=== PATIENT | female | born 1990 | race Two or more races ===

== ENCOUNTER 2019-06-13 09:18 | Outpatient (CLI) | payer OTHER | END 2019-06-13 09:20 | disposition home or self-care (01) | LOC: RX STUDY 09:18 | DX: R10.2 Pelvic and perineal pain (principal) ==

== ENCOUNTER 2019-11-22 09:29 | Day surgery (SDC) | payer OTHER ==
[~2019-11-22] VITALS: Ht 157.5 cm; Wt 55.8 kg
== END 2019-11-22 17:15 | disposition home or self-care (01) ==
LOC: ER 09:29 → CIR.AMB 10:27
DX: O02.1 Missed abortion (principal)

== ENCOUNTER 2020-07-25 07:08 | Day surgery (SDC) | payer OTHER ==
[~2020-07-25] VITALS: Ht 152.4 cm; Wt 54.4 kg
== END 2020-07-25 17:45 | disposition home or self-care (01) ==
LOC: ER 07:08 → O/R 07:50 → CIR.AMB 10:10 → O/R 11:45 → CIR.AMB 17:45
PROVIDERS: ATTEND Specialist
DX: O02.1 Missed abortion (principal); Z20.828 Contact with and (suspected) exposure to other viral communicable diseases